=== PATIENT | male | born 1980 | race Hispanic/Latino ===

== ENCOUNTER 2020-11-26 16:14 | Emergency (ER) | payer SELFPAY ==
[~2020-11-26] VITALS: Ht 190.5 cm; Wt 95.3 kg
[2020-11-26] MEDS ORDERED: LIDOCAINE HCL 1% LOCAL INJ 20 ML VIAL INJ STA (16:55)
[2020-11-26] MEDS ORDERED: CEPHALEXIN500 MG PO (16:59)
[2020-11-26] MEDS ORDERED: MOTRIN800 MG PO (16:59)
== END 2020-11-26 17:15 | disposition home or self-care (01) ==
LOC: FSED 16:17
DX: S61.216A Laceration without foreign body of right little finger without damage to nail, initial encounter (principal); W25.XXXA Contact with sharp glass, initial encounter; Y93.G1 Activity, food preparation and clean up; Y92.010 Kitchen of single-family (private) house as the place of occurrence of the external cause
CPT/HCPCS: 99283